=== PATIENT | male | born 1980 | race African-American/Black ===

== ENCOUNTER 2017-03-14 11:55 | Emergency (ER) | payer SELFPAY ==
[~2017-03-14] VITALS: Ht 167.6 cm; Wt 109.0 kg
[~2017-03-14 11:55] MED LIST: AM10; AMIT10TA6 PO; AMLO10TA80 PO; ATEN-42 PO; ATOR20TA65 PO; ENALAPRIL; LASIX; REMERON
[2017-03-14 14:08] LABS: BASOPHILS % 0.7 % (0.0-2.0); EOSINOPHILS % 4.9 % (0.0-5.0); HEMATOCRIT. 38.7 % (42.0-52.0); HEMOGLOBIN. 13.1 g/dL (14.0-18.0); LYMPHOCYTES % 21.9 % (20.0-50.0); MEAN CORPUSCULAR HEMOGLOBIN 28.2 pg (28.0-32.0); MEAN CORPUSCULAR VOLUME 83.5 fL (80.0-94.0); MEAN PLATELET VOLUME 10.9 fl (7.4-10.4); MONOCYTES % 7.6 % (2.0-8.0); NEUTROPHILS % 64.9 % (40.0-76.0); PLATELET 134 x1000/uL (130-400); RED BLOOD CELL COUNT 4.64 mill/uL (4.7-6.1); RED CELL DISTRIBUTION WIDTH 15.7 % (11.6-14.6)
[2017-03-14 14:15] LABS: PROTHROMBIN TIME 10.4 sec
[2017-03-14 14:19] LABS: CARBON DIOXIDE 28 mEq/L (21-32); CHLORIDE 107 mEq/L (98-107); ETHANOL BLOOD < 10 mg/dL
[2017-03-14 14:24] LABS: TROPONIN I 0.06 ng/mL (0.00-0.04)
[2017-03-14] MEDS ORDERED: ONDANSETRON HCL 4MG/2ML VIAL IV STA (15:02)
[2017-03-14] MEDS ORDERED: MORPHINE SULFATE 4 MG/ML CPJ (NOT FOR IM USE) IV STA (15:02)
[2017-03-14] MEDS ORDERED: HYDRALAZINE 20MG/ML VIAL IV ONE (15:15)
[2017-03-14 17:46] VITALS: BP 176/111
== END 2017-03-14 17:48 | disposition home or self-care (01) ==
LOC: ER 11:55
DX: I10 Essential (primary) hypertension (principal); N28.9 Disorder of kidney and ureter, unspecified; I69.354 Hemiplegia and hemiparesis following cerebral infarction affecting left non-dominant side; Z79.899 Other long term (current) drug therapy
CPT/HCPCS: 36415; 70450; 71010; 80053; 84484; 85025; 85610; 93005; 96374; 96375; 99285; G0482; J0360; J2270; J2405; Z7610

== ENCOUNTER 2017-10-26 10:20 | Inpatient (IN) | payer MEDICAID ==
[~2017-10-26] VITALS: Ht 168.9 cm; Wt 114.4 kg
[2017-10-26] MEDS ORDERED: NITROGLYCERIN 0.4MG TABLET SL SL PRN ×2 (11:30→12:45)
[2017-10-26] MEDS ORDERED: CLONIDINE 0.2MG TABLET PO ONE (11:30)
[2017-10-26 12:23] LABS: BASOPHILS % 0.7 % (0.0-2.0); EOSINOPHILS % 5.4 % (0.0-5.0); HEMATOCRIT. 41.7 % (42.0-52.0); HEMOGLOBIN. 13.9 g/dL (14.0-18.0); LYMPHOCYTES % 24.3 % (20.0-50.0); MEAN CORPUSCULAR VOLUME 84.2 fL (80.0-94.0); MEAN PLATELET VOLUME 11.9 fl (7.4-10.4); MONOCYTES % 6.2 % (2.0-8.0); NEUTROPHILS % 63.4 % (40.0-76.0); PLATELET 156 x1000/uL (130-400); RED BLOOD CELL COUNT 4.95 mill/uL (4.7-6.1); RED CELL DISTRIBUTION WIDTH 15.3 % (11.6-14.6)
[2017-10-26 12:29] LABS: CARBON DIOXIDE 30 mEq/L (21-32); CHLORIDE 104 mEq/L (98-107); PROTHROMBIN TIME 10.7 sec (9.4-11.6)
[2017-10-26 12:35] LABS: TROPONIN I 0.05 ng/mL (0.00-0.04)
[2017-10-26] MEDS ORDERED: ASPIRIN 81MG TABLET PO STA (12:40)
[2017-10-26] MEDS ORDERED: KETOROLAC 15MG/ML VIAL IV ONE (12:45)
[2017-10-26] MEDS ORDERED: HYDRALAZINE 20MG/ML VIAL IV ONE (13:00)
[2017-10-26] MEDS ORDERED: DOCUSATE SODIUM 100MG CAPSULE PO PRN (16:15)
[2017-10-26] MEDS ORDERED: HYDROCODONE/ACETAMINOPHEN 5/325MG TABLET PO PRN (16:15)
[2017-10-26] MEDS ORDERED: ACETAMINOPHEN 325MG TABLET PO PRN (16:15)
[2017-10-26] MEDS ORDERED: HYDRALAZINE 20MG/ML VIAL IV NR (17:39)
[2017-10-26 20:30] VITALS: BP 200/123
[2017-10-26 20:40] VITALS: BP 200/123
[2017-10-26] MEDS: METOPROLOL TARTRATE 25MG TABLET PO SCH (21:18)
[2017-10-26 21:20] VITALS: BP 177/110
[2017-10-27] VITALS: BP 161/102
[2017-10-27] MEDS: CLONIDINE 0.2MG TABLET PO PRN ×2 (00:48→10:34)
[2017-10-27 04:00] VITALS: BP 146/97
[2017-10-27 07:08] LABS: BASOPHILS % 0.5 % (0.0-2.0); EOSINOPHILS % 4.1 % (0.0-5.0); HEMATOCRIT. 43.2 % (42.0-52.0); HEMOGLOBIN. 14.2 g/dL (14.0-18.0); MEAN CORPUSCULAR HEMOGLOBIN 27.5 pg (28.0-32.0); MEAN CORPUSCULAR VOLUME 83.6 fL (80.0-94.0); MEAN PLATELET VOLUME 11.2 fl (7.4-10.4); MONOCYTES % 7.6 % (2.0-8.0); NEUTROPHILS % 65.8 % (40.0-76.0); PLATELET 156 x1000/uL (130-400); RED BLOOD CELL COUNT 5.16 mill/uL (4.7-6.1)
[2017-10-27 08:00] VITALS: BP 171/116
[2017-10-27 08:11] LABS: CARBON DIOXIDE 27 mEq/L (21-32); CHLORIDE 106 mEq/L (98-107)
[2017-10-27] MEDS: METOPROLOL TARTRATE 25MG TABLET PO SCH (08:41)
[2017-10-27] MEDS ORDERED: AMLODIPINE 10MG TABLET PO SCH (09:00)
[2017-10-27] MEDS ORDERED: ASPIRIN 81MG EC TABLET PO SCH (09:00)
[2017-10-27] MEDS ORDERED: LISINOPRIL 20MG TABLET PO SCH (11:23)
[2017-10-27 12:00] VITALS: BP 188/113
[2017-10-27] MEDS ORDERED: HYDRALAZINE HCL 10MG TABLET PO SCH (14:00)
[2017-10-27 16:00] VITALS: BP 151/99
[2017-10-27 16:50] VITALS: BP 151/99
[2017-10-28] MEDS ORDERED: LISINOPRIL 40MG TABLET PO SCH (09:00)
== END 2017-10-27 17:29 | disposition home or self-care (01) | DRG 199 ==
LOC: ER 10:30 → 5WST 13:07 → ENRESERV 18:55 → 5WST 21:19
PROVIDERS: ADMIT Hospitalist; ATTEND Hospitalist
DX: I16.0 Hypertensive urgency (principal); I12.9 Hypertensive chronic kidney disease with stage 1 through stage 4 chronic kidney disease, or unspecified chronic kidney disease; N18.9 Chronic kidney disease, unspecified; F12.90 Cannabis use, unspecified, uncomplicated; S39.012A Strain of muscle, fascia and tendon of lower back, initial encounter; F32.9 Major depressive disorder, single episode, unspecified; F41.9 Anxiety disorder, unspecified; G43.909 Migraine, unspecified, not intractable, without status migrainosus; X58.XXXA Exposure to other specified factors, initial encounter; Y93.89 Activity, other specified; Y92.89 Other specified places as the place of occurrence of the external cause; Z86.73 Personal history of transient ischemic attack (TIA), and cerebral infarction without residual deficits; Z79.899 Other long term (current) drug therapy; Y99.8 Other external cause status
CPT/HCPCS: 36415; 71045; 80053; 83880; 84484; 85025; 85610; 85730; 93005; 93970; 96374; 96375; 99285; J0360; J1885

== ENCOUNTER 2018-11-12 11:51 | Inpatient (IN) | payer MEDICAID ==
[~2018-11-12] VITALS: Ht 175.3 cm; Wt 101.6 kg
[~2018-11-12 11:51] MED LIST changes: -AMIT10TA6 PO; -ENALAPRIL; -LASIX; -REMERON
[2018-11-12] MEDS ORDERED: HYDRALAZINE 20MG/ML VIAL IV ONE ×2 (12:45→16:06)
[2018-11-12] MEDS ORDERED: ASPIRIN 81MG TABLET PO ONE (12:45)
[2018-11-12] MEDS ORDERED: NITROGLYCERIN 0.4MG TABLET SL SL ONE (13:00)
[2018-11-12 13:32] LABS: BASOPHILS % 0.7 % (0.0-2.0); EOSINOPHILS % 1.9 % (0.0-5.0); HEMATOCRIT. 43.8 % (42.0-52.0); HEMOGLOBIN. 14.4 g/dL (14.0-18.0); LYMPHOCYTES % 13.3 % (20.0-50.0); MEAN CORPUSCULAR HEMOGLOBIN 28.2 pg (28.0-32.0); MEAN CORPUSCULAR VOLUME 85.5 fL (80.0-94.0); MEAN PLATELET VOLUME 11.6 fl (7.4-10.4); MONOCYTES % 6.7 % (2.0-8.0); NEUTROPHILS % 77.4 % (40.0-76.0); PLATELET 123 x1000/uL (130-400); RED BLOOD CELL COUNT 5.12 mill/uL (4.7-6.1); RED CELL DISTRIBUTION WIDTH 15.9 % (11.6-14.6)
[2018-11-12 13:39] LABS: CHLORIDE 106 mEq/L (98-107)
[2018-11-12] MEDS ORDERED: DIPHENHYDRAMINE 50MG/ML VIAL IV ONE (18:00)
[2018-11-12] MEDS ORDERED: METOCLOPRAMIDE HCL 10MG/2ML VIAL IV ONE (18:00)
[2018-11-12] MEDS: NICARDIPINE 40MG/200ML PREMIX 200 ML IV STA ×2 (18:28→20:53)
[2018-11-13] VITALS (60 sets, daily range): BP systolic 112–186; BP diastolic 58–118
[2018-11-13] MEDS: NICARDIPINE 40MG/200ML PREMIX 200 ML IV SCH ×2 (04:15→10:00)
[2018-11-13] MEDS ORDERED: CLONIDINE 0.1MG TABLET PO PRN (07:30)
[2018-11-13] MEDS ORDERED: ACETAMINOPHEN 325MG TABLET PO PRN (07:30)
[2018-11-13] MEDS ORDERED: ONDANSETRON HCL 4MG/2ML INJ IV PRN (07:30)
[2018-11-13] MEDS ORDERED: HYDRALAZINE 20MG/ML VIAL IV PRN (07:30)
[2018-11-13] MEDS ORDERED: ASPI-1158 MT (09:18)
[2018-11-13] MEDS ORDERED: LISI40TA4 MT (09:18)
[2018-11-13] MEDS ORDERED: HYDR-4134 MT (09:18)
[2018-11-13] MEDS ORDERED: ATOR10TA69 MT (09:18)
[2018-11-13] MEDS: METOPROLOL TARTRATE 50MG TABLET PO SCH ×2 (09:37→22:56)
[2018-11-13] MEDS: ENOXAPARIN 30MG/0.3ML SYR SUBCUT SCH ×2 (09:38→21:17)
[2018-11-13] MEDS: NIFEDIPINE XL 60MG TAB PO SCH ×2 (10:12→22:56)
[2018-11-13 10:57] LABS: BASOPHILS % 0.3 % (0.0-2.0); EOSINOPHILS % 0.1 % (0.0-5.0); HEMATOCRIT. 40.8 % (42.0-52.0); HEMOGLOBIN. 13.5 g/dL (14.0-18.0); LYMPHOCYTES % 8.2 % (20.0-50.0); MEAN CORPUSCULAR HEMOGLOBIN 28.3 pg (28.0-32.0); MEAN CORPUSCULAR VOLUME 85.5 fL (80.0-94.0); MEAN PLATELET VOLUME 11.2 fl (7.4-10.4); MONOCYTES % 7.9 % (2.0-8.0); NEUTROPHILS % 83.5 % (40.0-76.0); PLATELET 119 x1000/uL (130-400); RED BLOOD CELL COUNT 4.77 mill/uL (4.7-6.1)
[2018-11-13 11:44] LABS: T4 FREE 1.42 ng/dL (0.76-1.46)
[2018-11-13] MEDS: NICARDIPINE 50 MG in SODIUM CHLORIDE 0.9% 250 ML IV PRN ×2 (12:53→17:03)
[2018-11-13] MEDS ORDERED: HYDRALAZINE HCL 50MG TABLET PO SCH (14:00)
[2018-11-13] MEDS: MINOXIDIL 2.5MG TABLET PO SCH ×2 (15:27→21:17)
[2018-11-13] MEDS: HYDROCODONE/ACETAMINOPHEN 5/325MG TABLET PO PRN (18:26)
[2018-11-13 18:49] LABS: CLARITY URINE CLEAR (CLEAR); COLOR URINE YELLOW (YELLOW); KETONES URINE NEGATIVE (NEGATIVE); LEUKOCYTE ESTERASE URINE NEGATIVE (NEGATIVE); NITRITE URINE NEGATIVE (NEGATIVE); OCCULT BLOOD URINE NEGATIVE (NEGATIVE); PH URINE 5.5 (4.5-8.0); PROTEIN URINE 2+ (NEGATIVE); SPECIFIC GRAVITY URINE 1.015 (1.005-1.030); UROBILINOGEN URINE 0.2 E.U./dL (0.2-1.0)
[2018-11-13 19:11] LABS: *AMPHETAMINES SCREEN URINE NEGATIVE (NEGATIVE); *BARBITURATES SCREEN URINE NEGATIVE (NEGATIVE)
[2018-11-13 19:12] LABS: *COCAINE SCREEN URINE NEGATIVE (NEGATIVE); CANNABINOID URINE SCREEN PRESUMTIVE POSITIVE (NEGATIVE); METHADONE URINE SCREEN NEGATIVE (NEGATIVE); OPIATES URINE SCREEN NEGATIVE (NEGATIVE); PHENCYCLIDINE URINE SCREEN NEGATIVE (NEGATIVE)
[2018-11-13 19:14] LABS: *BENZODIAZEPINES SCREEN URINE NEGATIVE (NEGATIVE)
[2018-11-13] MEDS: ATORVASTATIN CALCIUM 40MG TABLET PO SCH (21:17)
[2018-11-14] VITALS (83 sets, daily range): BP systolic 117–192; BP diastolic 62–122
[2018-11-14] MEDS: NICARDIPINE 50 MG in SODIUM CHLORIDE 0.9% 250 ML IV PRN (00:20)
[2018-11-14] MEDS: HYDROCODONE/ACETAMINOPHEN 5/325MG TABLET PO PRN (03:27)
[2018-11-14 06:16] LABS: BASOPHILS % 0.4 % (0.0-2.0); EOSINOPHILS % 0.1 % (0.0-5.0); HEMATOCRIT. 45.3 % (42.0-52.0); HEMOGLOBIN. 14.8 g/dL (14.0-18.0); LYMPHOCYTES % 7.7 % (20.0-50.0); MEAN CORPUSCULAR HEMOGLOBIN 28.3 pg (28.0-32.0); MEAN CORPUSCULAR VOLUME 86.7 fL (80.0-94.0); MEAN PLATELET VOLUME 11.8 fl (7.4-10.4); MONOCYTES % 6.9 % (2.0-8.0); NEUTROPHILS % 84.9 % (40.0-76.0); PLATELET 152 x1000/uL (130-400); RED BLOOD CELL COUNT 5.23 mill/uL (4.7-6.1); RED CELL DISTRIBUTION WIDTH 16.5 % (11.6-14.6)
[2018-11-14 06:41] LABS: PHOSPHORUS 3.8 mg/dL (2.5-4.9)
[2018-11-14] MEDS: ENOXAPARIN 30MG/0.3ML SYR SUBCUT SCH ×2 (09:50→22:17)
[2018-11-14] MEDS: CLOPIDOGREL 75MG TABLET PO SCH (09:50)
[2018-11-14] MEDS: NIFEDIPINE XL 60MG TAB PO SCH ×2 (09:50→22:18)
[2018-11-14] MEDS: ASPIRIN 81MG TABLET PO SCH (09:51)
[2018-11-14] MEDS: METOPROLOL TARTRATE 50MG TABLET PO SCH ×2 (09:51→22:18)
[2018-11-14] MEDS: MINOXIDIL 2.5MG TABLET PO SCH ×2 (09:51→22:18)
[2018-11-14] MEDS: CEFTRIAXONE 1,000 MG in DEXTROSE 5% WATER 50 ML IV SCH (13:06)
[2018-11-14 16:10] LABS: CREATINE KINASE MB FRACTION 10.6 ng/mL (0.5-3.6)
[2018-11-14] MEDS: ATORVASTATIN CALCIUM 40MG TABLET PO SCH (22:18)
[2018-11-15] VITALS (9 sets, daily range): BP systolic 119–149; BP diastolic 62–110
[2018-11-15 05:48] LABS: BASOPHILS % 0.6 % (0.0-2.0); EOSINOPHILS % 0.8 % (0.0-5.0); HEMATOCRIT. 42.8 % (42.0-52.0); HEMOGLOBIN. 13.9 g/dL (14.0-18.0); LYMPHOCYTES % 12.8 % (20.0-50.0); MEAN CORPUSCULAR HEMOGLOBIN 28.1 pg (28.0-32.0); MEAN CORPUSCULAR VOLUME 86.4 fL (80.0-94.0); MEAN PLATELET VOLUME 11.5 fl (7.4-10.4); MONOCYTES % 8.2 % (2.0-8.0); NEUTROPHILS % 77.6 % (40.0-76.0); PLATELET 136 x1000/uL (130-400); RED BLOOD CELL COUNT 4.95 mill/uL (4.7-6.1)
[2018-11-15 06:10] LABS: PHOSPHORUS 3.6 mg/dL (2.5-4.9)
[2018-11-15 06:15] LABS: CREATINE KINASE MB FRACTION 5.7 ng/mL (0.5-3.6)
[2018-11-15] MEDS: NIFEDIPINE XL 60MG TAB PO SCH (09:00)
[2018-11-15] MEDS: ENOXAPARIN 30MG/0.3ML SYR SUBCUT SCH (09:30)
[2018-11-15] MEDS ORDERED: REGADENOSON 0.4 MG/5 ML IV ONE ×2 (09:57→11:00)
[2018-11-15] MEDS: CLOPIDOGREL 75MG TABLET PO SCH (11:26)
[2018-11-15] MEDS: ASPIRIN 81MG TABLET PO SCH (11:26)
[2018-11-15] MEDS: MINOXIDIL 2.5MG TABLET PO SCH (11:27)
[2018-11-15] MEDS: METOPROLOL TARTRATE 50MG TABLET PO SCH (11:27)
[2018-11-15] MEDS: CEFTRIAXONE 1,000 MG in DEXTROSE 5% WATER 50 ML IV SCH (12:00)
[2018-11-20 17:08] LABS: HIV 1 ABS Negative (Negative); HIV 2 ABS Negative (Negative); HIV SCREEN 4G Reactive (Non Reactive); INTERPRETATION Negative (.)
== END 2018-11-15 16:20 | disposition home or self-care (01) | DRG 199 ==
LOC: ER 11:51 → EDBEDREQ 12:47 → CVICU 16:13 → EDBEDREQ 16:21 → EDBEDREQTM 16:21 → EDBEDREQSVC 16:21 → EDBEDREQTM 18:08 → EDBEDREQ 18:08 → ENRESERV 11-13 08:00 → 3WST 11-14 21:09
PROVIDERS: ADMIT Internal Medicine; ATTEND Internal Medicine
DX: I16.1 Hypertensive emergency (principal); I21.4 Non-ST elevation (NSTEMI) myocardial infarction; N17.0 Acute kidney failure with tubular necrosis; N18.4 Chronic kidney disease, stage 4 (severe); I42.9 Cardiomyopathy, unspecified; D69.6 Thrombocytopenia, unspecified; I50.22 Chronic systolic (congestive) heart failure; I13.0 Hypertensive heart and chronic kidney disease with heart failure and stage 1 through stage 4 chronic kidney disease, or unspecified chronic kidney disease; E78.5 Hyperlipidemia, unspecified; E66.9 Obesity, unspecified; D72.829 Elevated white blood cell count, unspecified; F12.90 Cannabis use, unspecified, uncomplicated; F32.9 Major depressive disorder, single episode, unspecified; F41.9 Anxiety disorder, unspecified; Z82.49 Family history of ischemic heart disease and other diseases of the circulatory system; Z86.73 Personal history of transient ischemic attack (TIA), and cerebral infarction without residual deficits; Z79.899 Other long term (current) drug therapy; Z68.33 Body mass index [BMI] 33.0-33.9, adult; Z71.3 Dietary counseling and surveillance
CPT/HCPCS: 36415; 71045; 76770; 78452; 78580; 80048; 80061; 80305; 82550; 82553; 83036; 83735; 83880; 84100; 84145; 84439; 84443; 84484; 85379; 86701; 86702; 87389; 87535; 93005; 93017; 93306; 93970; 96365; 96375; 96376; 99291; A9500; J0360; J0696; J1200; J1650; J2765; J2785; J3490; J7050; J7060; A4315

== ENCOUNTER 2019-08-10 12:36 | Inpatient (IN) | payer MEDICAID ==
[2019-08-10] VITALS (7 sets, daily range): BP systolic 151–178; BP diastolic 109–129
[~2019-08-10] VITALS: Ht 170.2 cm; Wt 105.7 kg
[~2019-08-10 12:36] MED LIST changes: -AM10; -AMLO10TA80 PO; -ATEN-42 PO; -ATOR20TA65 PO; +LIP40 PO; +METO-539 PO; +MINO2.5T2 PO; +NIFE20CA PO
[2019-08-10] MEDS ORDERED: ALBUTEROL (0.083%) 2.5MG/3ML NEB HHN STA (12:43)
[2019-08-10] MEDS ORDERED: METHYLPREDNISOLONE SOD SUCC 125 MG/2 ML VIAL IV STA (12:43)
[2019-08-10] MEDS ORDERED: IPRATROPIUM BROMIDE (0.02%) 0.5MG/2.5ML NEB HHN STA (12:43)
[2019-08-10 13:29] LABS: BG BASE EXCESS 0.2 mmol/L (-2.0-2.0); BG CARBOXYHEMOGLOBIN 2.6 % (0.5-1.5); BG DEOXYHEMOGLOBIN 6.7 % (0.0-5.0); BG HCO3 ACT 22.6 mmol/L (22.0-26.0); BG METHEMOGLOBIN 0.1 % (0.0-1.5); BG OXYGEN SATURATION 93.1 % (92.0-98.5); BG OXYHEMOGLOBIN 90.6 % (94.0-97.0); BG PCO2 30.8 mmHg (35.0-45.0); BG PH 7.483 (7.350-7.450); BG SAMPLE SITE RIGHT RADIAL; BG TOTAL HEMOGLOBIN 15.7 g/dL (12.0-18.0)
[2019-08-10 13:51] LABS: BASOPHILS % 0.8 % (0.0-2.0); EOSINOPHILS % 5.4 % (0.0-5.0); HEMATOCRIT. 49.8 % (42.0-52.0); HEMOGLOBIN. 16.3 g/dL (14.0-18.0); LYMPHOCYTES % 14.7 % (20.0-50.0); MEAN CORPUSCULAR HEMOGLOBIN 27.9 pg (28.0-32.0); MEAN CORPUSCULAR VOLUME 85.2 fL (80.0-94.0); MEAN PLATELET VOLUME 11.7 fl (7.4-10.4); MONOCYTES % 5.6 % (2.0-8.0); NEUTROPHILS % 73.5 % (40.0-76.0); PLATELET 168 x1000/uL (130-400); RED BLOOD CELL COUNT 5.84 mill/uL (4.7-6.1); RED CELL DISTRIBUTION WIDTH 15.9 % (11.6-14.6)
[2019-08-10] MEDS ORDERED: ENALAPRIL 2.5MG/2ML VIAL 2ML IV ONE (14:00)
[2019-08-10] MEDS ORDERED: FUROSEMIDE 40MG/4ML VIAL IVP ONE (14:00)
[2019-08-10] MEDS ORDERED: DIPHENHYDRAMINE 50MG/ML VIAL IV PRN (14:15)
[2019-08-10] MEDS ORDERED: ONDANSETRON HCL 4MG/2ML INJ IV PRN (14:15)
[2019-08-10] MEDS ORDERED: IPRATROPIUM/ALBUTEROL 0.5-3(2.5)MG/3ML NEB HHN PRN (14:15)
[2019-08-10] MEDS ORDERED: DOCUSATE SODIUM 100MG CAPSULE PO PRN (14:15)
[2019-08-10] MEDS ORDERED: GUAIFENESIN 200MG/10ML SUGAR FREE UDC PO PRN (14:15)
[2019-08-10] MEDS ORDERED: ENALAPRIL 1.25MG/ML VIAL 1ML IV NR (14:25)
[2019-08-10 14:33] LABS: CHLORIDE 103 mEq/L (98-107)
[2019-08-10 14:38] LABS: PHOSPHORUS 3.6 mg/dL (2.5-4.9)
[2019-08-10] MEDS ORDERED: ASPI-1393 PO (16:09)
[2019-08-10] MEDS ORDERED: NITR0.4T49 SL (16:09)
[2019-08-10] MEDS ORDERED: AMLO10TA80 PO (16:09)
[2019-08-10] MEDS: HYDRALAZINE 20MG/ML VIAL IV PRN (16:45)
[2019-08-10] MEDS ORDERED: POTASSIUM CHLORIDE 20MEQ TABLET SR PO NR (16:45)
[2019-08-10] MEDS: FUROSEMIDE 40MG/4ML VIAL IV SCH (16:45)
[2019-08-10] MEDS ORDERED: NITROGLYCERIN 0.4MG TABLET SL SL SCH (17:30)
[2019-08-10] MEDS ORDERED: CEFTRIAXONE 1,000 MG in DEXTROSE 5% WATER 50 ML IV SCH (18:00)
[2019-08-10] MEDS ORDERED: METOPROLOL TARTRATE 50MG TABLET PO NR (19:00)
[2019-08-10] MEDS ORDERED: AMLODIPINE 5MG TABLET PO NR (19:00)
[2019-08-10] MEDS: ENOXAPARIN 40MG/0.4ML SYR SUBCUT SCH (20:41)
[2019-08-11] VITALS (7 sets, daily range): BP systolic 139–178; BP diastolic 82–132
[2019-08-11] MEDS: HYDRALAZINE 20MG/ML VIAL IV PRN ×2 (01:26→11:07)
[2019-08-11] MEDS: ACETAMINOPHEN 325MG TABLET PO PRN ×2 (04:05→13:09)
[2019-08-11 06:19] LABS: HEMATOCRIT. 44.9 % (42.0-52.0); HEMOGLOBIN. 15.2 g/dL (14.0-18.0); MEAN CORPUSCULAR HEMOGLOBIN 28.5 pg (28.0-32.0); MEAN CORPUSCULAR VOLUME 84.2 fL (80.0-94.0); MEAN PLATELET VOLUME 11.4 fl (7.4-10.4); PLATELET 155 x1000/uL (130-400); RED BLOOD CELL COUNT 5.33 mill/uL (4.7-6.1); RED CELL DISTRIBUTION WIDTH 15.9 % (11.6-14.6)
[2019-08-11] MEDS: FUROSEMIDE 40MG/4ML VIAL IV SCH ×2 (06:29→17:21)
[2019-08-11] MEDS: ATORVASTATIN CALCIUM 40MG TABLET PO SCH (08:44)
[2019-08-11] MEDS: AMLODIPINE 10MG TABLET PO SCH (08:44)
[2019-08-11] MEDS: NIFEDIPINE XL 60MG TAB PO SCH (08:45)
[2019-08-11] MEDS: ASPIRIN 81MG EC TABLET PO SCH (08:45)
[2019-08-11] MEDS: MINOXIDIL 2.5MG TABLET PO SCH ×2 (08:45→21:10)
[2019-08-11] MEDS: METOPROLOL TARTRATE 50MG TABLET PO SCH ×2 (08:45→21:10)
[2019-08-11 09:59] LABS: PLATELET ESTIMATE NORMAL
[2019-08-11 13:00] LABS: BASOPHILS % 0.6 % (0.0-2.0); EOSINOPHILS % 0.1 % (0.0-5.0); HEMOGLOBIN. 15.8 g/dL (14.0-18.0); LYMPHOCYTES % 8.3 % (20.0-50.0); MEAN CORPUSCULAR HEMOGLOBIN 27.6 pg (28.0-32.0); MEAN CORPUSCULAR VOLUME 83.6 fL (80.0-94.0); MEAN PLATELET VOLUME 11.5 fl (7.4-10.4); MONOCYTES % 5.8 % (2.0-8.0); NEUTROPHILS % 85.2 % (40.0-76.0); PLATELET 183 x1000/uL (130-400); RED BLOOD CELL COUNT 5.74 mill/uL (4.7-6.1); RED CELL DISTRIBUTION WIDTH 16.3 % (11.6-14.6)
[2019-08-11] MEDS: CLONIDINE 0.2MG TABLET PO SCH ×2 (13:12→21:10)
[2019-08-11] MEDS ORDERED: CEFTRIAXONE 1,000 MG in DEXTROSE 5% WATER 50 ML IV SCH (18:30)
[2019-08-11] MEDS: ENOXAPARIN 40MG/0.4ML SYR SUBCUT SCH (21:09)
[2019-08-12] VITALS: BP 161/110
[2019-08-12] MEDS: HYDRALAZINE 20MG/ML VIAL IV PRN (00:03)
[2019-08-12 04:00] VITALS: BP 133/88
[2019-08-12] MEDS: CLONIDINE 0.2MG TABLET PO SCH ×2 (06:33→14:22)
[2019-08-12] MEDS: FUROSEMIDE 40MG/4ML VIAL IV SCH ×2 (06:33→17:15)
[2019-08-12 06:46] LABS: BASOPHILS % 0.7 % (0.0-2.0); EOSINOPHILS % 0.9 % (0.0-5.0); HEMATOCRIT. 45.9 % (42.0-52.0); LYMPHOCYTES % 16.6 % (20.0-50.0); MEAN CORPUSCULAR HEMOGLOBIN 27.7 pg (28.0-32.0); MEAN CORPUSCULAR VOLUME 84.9 fL (80.0-94.0); MONOCYTES % 7.9 % (2.0-8.0); NEUTROPHILS % 73.9 % (40.0-76.0); RED CELL DISTRIBUTION WIDTH 15.8 % (11.6-14.6)
[2019-08-12 06:51] LABS: PHOSPHORUS 3.7 mg/dL (2.5-4.9)
[2019-08-12 08:00] VITALS: BP 135/87
[2019-08-12] MEDS: ATORVASTATIN CALCIUM 40MG TABLET PO SCH (09:22)
[2019-08-12] MEDS: METOPROLOL TARTRATE 50MG TABLET PO SCH (09:23)
[2019-08-12] MEDS: ASPIRIN 81MG EC TABLET PO SCH (09:23)
[2019-08-12] MEDS: AMLODIPINE 10MG TABLET PO SCH (09:23)
[2019-08-12] MEDS: NIFEDIPINE XL 60MG TAB PO SCH (09:23)
[2019-08-12] MEDS: MINOXIDIL 2.5MG TABLET PO SCH (09:23)
[2019-08-12 12:00] VITALS: BP 140/103
[2019-08-12] MEDS ORDERED: FURO40TA5 MT (13:32)
[2019-08-12] MEDS ORDERED: CLON0.2T12 PO (13:32)
[2019-08-12 14:16] VITALS: BP 140/103
[2019-08-12] MEDS ORDERED: MINOXIDIL 2.5MG TABLET PO SCH (21:00)
== END 2019-08-12 18:50 | disposition home or self-care (01) | DRG 133 ==
LOC: ER 12:38 → 5WST 13:56 → ENRESERV 14:03 → CANRESERV 14:03 → EDBEDREQSVC 14:44 → ENRESERV 14:47
PROVIDERS: ADMIT Internal Medicine; ATTEND Internal Medicine
DX: J96.01 Acute respiratory failure with hypoxia (principal); N17.9 Acute kidney failure, unspecified; N18.4 Chronic kidney disease, stage 4 (severe); I13.0 Hypertensive heart and chronic kidney disease with heart failure and stage 1 through stage 4 chronic kidney disease, or unspecified chronic kidney disease; E44.1 Mild protein-calorie malnutrition; I50.9 Heart failure, unspecified; I16.1 Hypertensive emergency; D72.829 Elevated white blood cell count, unspecified; E87.6 Hypokalemia; F32.9 Major depressive disorder, single episode, unspecified; I25.10 Atherosclerotic heart disease of native coronary artery without angina pectoris; E03.9 Hypothyroidism, unspecified; Z79.82 Long term (current) use of aspirin; Z82.49 Family history of ischemic heart disease and other diseases of the circulatory system; Z86.73 Personal history of transient ischemic attack (TIA), and cerebral infarction without residual deficits; Z79.899 Other long term (current) drug therapy; I25.2 Old myocardial infarction; Z68.36 Body mass index [BMI] 36.0-36.9, adult
CPT/HCPCS: 36415; 36600; 71045; 76770; 80048; 80061; 82375; 82550; 82805; 83735; 83880; 84100; 84443; 84484; 93005; 93970; 94644; 94660; 96374; 97161; 99291; J0360; J0696; J1200; J1650; J1940; J2930; J3490; J7040; J7060; J7611

== ENCOUNTER 2019-10-24 14:02 | Emergency (ER) | payer MEDICAID ==
[~2019-10-24] VITALS: Ht 170.2 cm; Wt 108.0 kg
[~2019-10-24 14:02] MED LIST changes: +AMLO10TA80 PO; +ASPI-1497 PO; +CLON0.2T12 PO; +FURO40TA5 MT; +NITR0.4T49 SL
[2019-10-24 16:48] VITALS: BP 149/80
== END 2019-10-24 18:28 | disposition left against medical advice (07) ==
LOC: ER 14:02
DX: Z53.21 Procedure and treatment not carried out due to patient leaving prior to being seen by health care provider (principal); I10 Essential (primary) hypertension; I25.2 Old myocardial infarction; Z86.73 Personal history of transient ischemic attack (TIA), and cerebral infarction without residual deficits
CPT/HCPCS: 93005

== ENCOUNTER 2020-04-29 20:49 | Inpatient (IN) | payer MEDICAID ==
[~2020-04-29] VITALS: Ht 170.2 cm; Wt 110.5 kg
[2020-04-29] MEDS ORDERED: LABETALOL 5MG/ML SYR 20 MG/4 ML SYRINGE IV ONE (21:45)
[2020-04-29] MEDS ORDERED: CLONIDINE 0.2MG TABLET PO ONE (21:45)
[2020-04-29 22:42] LABS: BASOPHILS % 0.6 % (0.0-2.0); EOSINOPHILS % 4.8 % (0.0-5.0); HEMATOCRIT. 46.1 % (42.0-52.0); HEMOGLOBIN. 15.3 g/dL (14.0-18.0); LYMPHOCYTES % 9.5 % (20.0-50.0); MEAN CORPUSCULAR HEMOGLOBIN 27.9 pg (28.0-32.0); MEAN CORPUSCULAR VOLUME 84.5 fL (80.0-94.0); MEAN PLATELET VOLUME 11.6 fl (7.4-10.4); MONOCYTES % 5.8 % (2.0-8.0); NEUTROPHILS % 79.3 % (40.0-76.0); PLATELET 123 x1000/uL (130-400); RED BLOOD CELL COUNT 5.46 mill/uL (4.7-6.1)
[2020-04-29 22:47] LABS: CHLORIDE 104 mEq/L (98-107)
[2020-04-29 22:52] LABS: PARTIAL THROMBOPLASTIN TIME 31.5 sec (23.4-31.0); PROTHROMBIN TIME 10.4 sec (9.6-11.0)
[2020-04-29] MEDS ORDERED: AMLODIPINE 10MG TABLET PO ONE (23:00)
[2020-04-30] VITALS (15 sets, daily range): BP systolic 136–179; BP diastolic 80–117
[2020-04-30] MEDS ORDERED: HYDRALAZINE 20MG/ML VIAL IV ONE (00:15)
[2020-04-30] MEDS: ASPIRIN 325MG TABLET PO NR ×2 (00:41→01:20)
[2020-04-30] MEDS ORDERED: NICARDIPINE 40MG/200ML PREMIX 200 ML IV PRN (01:30)
[2020-04-30] MEDS ORDERED: ACETAMINOPHEN 325MG TABLET PO PRN (05:30)
[2020-04-30] MEDS ORDERED: GUAIFENESIN 200MG/10ML SUGAR FREE UDC PO PRN (05:30)
[2020-04-30] MEDS ORDERED: DOCUSATE SODIUM 100MG CAPSULE PO PRN (05:30)
[2020-04-30] MEDS ORDERED: HYDROCODONE/ACETAMINOPHEN 5/325MG TABLET PO PRN (05:30)
[2020-04-30] MEDS ORDERED: MORPHINE SULFATE 2 MG/ML CPJ (NOT FOR IM USE) IV PRN (05:30)
[2020-04-30] MEDS ORDERED: ONDANSETRON HCL 4MG/2ML INJ IV PRN (05:30)
[2020-04-30] MEDS: AMLODIPINE 10MG TABLET PO SCH ×2 (05:55→08:08)
[2020-04-30] MEDS ORDERED: NICARDIPINE 50 MG in SODIUM CHLORIDE 0.9% 230 ML IV PRN (06:30)
[2020-04-30] MEDS ORDERED: LISINOPRIL 40MG TABLET PO SCH (08:00)
[2020-04-30] MEDS ORDERED: CLONIDINE 0.2MG TABLET PO SCH (08:30)
[2020-04-30] MEDS ORDERED: METOPROLOL TARTRATE 25MG TABLET PO SCH (09:00)
[2020-04-30] MEDS ORDERED: ENOXAPARIN 30MG/0.3ML SYR SUBCUT SCH (09:00)
[2020-04-30] MEDS ORDERED: ASPIRIN 81MG EC TABLET PO SCH (09:00)
[2020-04-30] MEDS ORDERED: METOPROLOL TARTRATE 50MG TABLET PO SCH (09:00)
[2020-04-30 09:24] LABS: BG BASE EXCESS -0.4 mmol/L (-2.0-2.0); BG DEOXYHEMOGLOBIN 4.3 % (0.0-5.0); BG FRACTION INSPIRED OXYGEN 28; BG HCO3 ACT 22.2 mmol/L (22.0-26.0); BG METHEMOGLOBIN 0.2 % (0.0-1.5); BG OXYGEN SATURATION 95.6 % (92.0-98.5); BG OXYHEMOGLOBIN 94.5 % (94.0-97.0); BG PCO2 31.4 mmHg (35.0-45.0); BG PH 7.468 (7.350-7.450); BG PO2 77.3 mmHg (75.0-100.0); BG SAMPLE SITE LEFT RADIAL; BG TOTAL HEMOGLOBIN 15.6 g/dL (12.0-18.0); BG VENT MODE NASAL CANNULA
[2020-04-30] MEDS ORDERED: FUROSEMIDE 20MG/2ML VIAL IVP SCH (09:30)
== END 2020-04-30 13:30 | disposition left against medical advice (07) | DRG 199 ==
LOC: ER 20:49 → EDBEDREQTM 04-30 01:27 → EDBEDREQSVC 04-30 01:27 → ENRESERV 04-30 04:25 → CVICU 04-30 05:45
PROVIDERS: ADMIT Hospitalist; ATTEND Hospitalist
DX: I16.1 Hypertensive emergency (principal); D69.6 Thrombocytopenia, unspecified; E03.9 Hypothyroidism, unspecified; E78.5 Hyperlipidemia, unspecified; E87.2 Acidosis; F32.9 Major depressive disorder, single episode, unspecified; I13.0 Hypertensive heart and chronic kidney disease with heart failure and stage 1 through stage 4 chronic kidney disease, or unspecified chronic kidney disease; I25.10 Atherosclerotic heart disease of native coronary artery without angina pectoris; I50.9 Heart failure, unspecified; J96.91 Respiratory failure, unspecified with hypoxia; N17.9 Acute kidney failure, unspecified; N18.4 Chronic kidney disease, stage 4 (severe); Z82.49 Family history of ischemic heart disease and other diseases of the circulatory system; I25.2 Old myocardial infarction; Z86.73 Personal history of transient ischemic attack (TIA), and cerebral infarction without residual deficits; Z79.899 Other long term (current) drug therapy; Z79.82 Long term (current) use of aspirin
CPT/HCPCS: 36415; 36600; 71045; 80053; 82375; 82550; 82805; 83880; 84484; 85025; 93005; 93306; 93970; 99291; J0360; J1650; J1940; J3490

== ENCOUNTER 2022-08-08 23:42 | Emergency (ER) | payer MEDICAID ==
[~2022-08-08] VITALS: Ht 177.8 cm; Wt 100.0 kg
[2022-08-08 23:45] VITALS: BP 169/118
== END 2022-08-09 04:48 | disposition left against medical advice (07) ==
LOC: ER 23:58
DX: Z53.21 Procedure and treatment not carried out due to patient leaving prior to being seen by health care provider (principal)

== ENCOUNTER 2024-10-12 13:13 | Emergency (ER) | payer MEDICAID ==
[~2024-10-12] VITALS: Ht 177.8 cm; Wt 130.0 kg
[~2024-10-12 13:13] MED LIST changes: +APIX5TAB PO; +CARV12.545 PO; +CHOL200059 PO; -CLON0.2T12 PO; +FAMO20TA8 PO; -FURO40TA5 MT; +HYDR50TA39 PO; +ISOS40TA18 PO; +LISI10TA26 PO; +METR-167 PO; -NIFE20CA PO; +NIFE20CA8 PO; +SEVE800T8 PO
[2024-10-12 13:25] VITALS: PULSE 91; PULSE 98; RESP 16; O2SAT 98; O2SAT 99
[2024-10-12] MEDS: VECURONIUM BROMIDE 10 MG/VIAL IV ONE (13:28)
[2024-10-12] MEDS: ETOMIDATE 2MG/ML 10ML VIAL IV ONE (13:28)
[2024-10-12] MEDS ORDERED: MIDAZOLAM HCL 100 MG in DEXT 5% WATER 80 ML IV ONE (13:30)
[2024-10-12] MEDS ORDERED: MIDAZOLAM HCL 2 MG/2 ML VIAL IV ONE (13:30)
[2024-10-12] MEDS: MIDAZOLAM HCL 2 MG/2 ML VIAL IV NR (13:38)
[2024-10-12 13:51] LABS: BASOPHILS % 0.9 % (0.0-2.0); EOSINOPHILS % 2.2 % (0.0-5.0); HEMATOCRIT. 40.6 % (42.0-52.0); HEMOGLOBIN. 13.4 g/dL (14.0-18.0); LYMPHOCYTES % 28.4 % (20.0-50.0); MEAN CORPUSCULAR HEMOGLOBIN 31.1 pg (28.0-32.0); MEAN CORPUSCULAR VOLUME 94.3 fL (80.0-94.0); MEAN PLATELET VOLUME 10.8 fl (7.4-10.4); MONOCYTES % 12.1 % (2.0-8.0); NEUTROPHILS % 56.4 % (40.0-76.0); PLATELET 260 x1000/uL (130-400); RED CELL DISTRIBUTION WIDTH 14.2 % (11.6-14.6)
[2024-10-12 13:57] LABS: CHLORIDE 99 mEq/L (98-107); POTASSIUM 3.2 mEq/L (3.5-5.1); SODIUM 136 mEq/L (136-145)
[2024-10-12 13:58] LABS: CALCIUM 9.4 mg/dL (8.7-10.4); CARBON DIOXIDE 22 mEq/L (21-32)
[2024-10-12] MEDS: MIDAZOLAM 100MG/100ML PREMIX IV PRN (13:58)
[2024-10-12 14:03] LABS: GLUCOSE 180 mg/dL (70-105); UREA NITROGEN BLOOD 55 mg/dL (9-23)
[2024-10-12 14:04] LABS: AMMONIA 19 uMol/L (<32)
[2024-10-12 14:07] LABS: ETHANOL BLOOD < 10 mg/dL (<10); TROPONIN I HIGH SENSITIVITY 73 ng/L (3.0-53)
[2024-10-12 14:08] LABS: CREATININE 7.5 mg/dL (0.6-1.3)
[2024-10-12 14:21] LABS: BG BASE EXCESS -5.7 mmol/L (-2.0-3.0); BG CARBOXYHEMOGLOBIN 0.6 % (0.5-1.5); BG DEOXYHEMOGLOBIN 0.6 % (0.0-5.0); BG FRACTION INSPIRED OXYGEN 100; BG HCO3 ACT 19.8 mmol/L (21.0-28.0); BG METHEMOGLOBIN 0.3 % (0.5-1.5); BG OXYGEN SATURATION 99.4 % (94.0-98.0); BG OXYHEMOGLOBIN 98.5 % (94.0-98.0); BG PCO2 38.6 mmHg (35.0-48.0); BG PH 7.327 (7.350-7.450); BG PO2 227.3 mmHg (83.0-108.0); BG SAMPLE SITE RIGHT RADIAL; BG TOTAL HEMOGLOBIN 13.7 g/dL (13.5-17.5); BG TOTAL RESPIRATORY RATE 16 b/min; BG VENT MODE VENT - AC
[2024-10-12 14:37] LABS: *AMPHETAMINES SCREEN URINE NEGATIVE (NEGATIVE); *BARBITURATES SCREEN URINE NEGATIVE (NEGATIVE); *BENZODIAZEPINES SCREEN URINE NEGATIVE (NEGATIVE); *COCAINE SCREEN URINE NEGATIVE (NEGATIVE); CANNABINOID URINE SCREEN PRESUMPTIVE POSITIVE (NEGATIVE); ECSTASY MDMA SCREEN URINE NEGATIVE (NEGATIVE); METHADONE URINE SCREEN NEGATIVE (NEGATIVE); OPIATES URINE SCREEN NEGATIVE (NEGATIVE); PHENCYCLIDINE URINE SCREEN NEGATIVE (NEGATIVE)
[2024-10-12] MEDS: NICARDIPINE 40MG/200ML PREMIX 200 ML IV PRN (15:52)
[2024-10-12 16:01] VITALS: O2SAT 100
[2024-10-12] MEDS: PROPOFOL 10MG/ML 100ML 100 ML IV SCH (16:01)
[2024-10-12 16:30] VITALS: BP 171/99; PULSE 79; RESP 19; TEMP 37.16964; O2SAT 100
[2024-10-12] MEDS: MANNITOL 12.5G (25%) VIAL 50ML IV ONE (16:53)
== END 2024-10-12 17:00 | disposition short-term general hospital (02) ==
LOC: ER 13:25
DX: G93.40 Encephalopathy, unspecified (principal); I25.2 Old myocardial infarction; I10 Essential (primary) hypertension; I62.9 Nontraumatic intracranial hemorrhage, unspecified; N18.6 End stage renal disease; Z79.899 Other long term (current) drug therapy; Z86.73 Personal history of transient ischemic attack (TIA), and cerebral infarction without residual deficits
CPT/HCPCS: 80305; 80048; 80320; 82140; 85025; 85610; 84484; 36415; 71045; 70450; 82805; 82375; 31500 ×2; 93005; 36556; 96368; 96365; 96366; 96375; 99291; 36600; Z7610 ×9; J2150; J2250; J2704; 94002; A4606; J7060; G0480